=== PATIENT | male | born 1945 | race Caucasian/White ===

== ENCOUNTER 2018-01-12 12:06 | Outpatient (RCR) | payer OTHER ==
[~2018-01-12 12:06] MED LIST: LIDOCAINE VISC 2% SOLN 15 ML UDC ONE; MINERAL OIL/PETROLAT/GLYCERI 6OZ BTL ONE
[2018-01-12] MEDS ORDERED: LIDOCAINE VISC 2% SOLN 15 ML UDC ONE (12:54)
== END 2018-01-15 ==
LOC: WCC 12:06
PROVIDERS: ATTEND Family Medicine Adult Medicine
DX: S81.802A Unspecified open wound, left lower leg, initial encounter (principal); I87.2 Venous insufficiency (chronic) (peripheral); R60.9 Edema, unspecified; I10 Essential (primary) hypertension; W18.49XA Other slipping, tripping and stumbling without falling, initial encounter

== ENCOUNTER 2018-02-09 10:53 | Outpatient (RCR) | payer MEDICARE, OTHER ==
[~2018-02-09 10:53] MED LIST changes: +LIDOCAINE/PRILOCAINE 2.5-2.5% KIT ONE
[2018-02-09] MEDS ORDERED: LIDOCAINE/PRILOCAINE 2.5-2.5% KIT ONE (13:23)
== END 2018-02-15 ==
LOC: WCC 10:53
PROVIDERS: ATTEND Family Medicine Adult Medicine
DX: S81.802A Unspecified open wound, left lower leg, initial encounter (principal); I87.2 Venous insufficiency (chronic) (peripheral); R60.9 Edema, unspecified; I10 Essential (primary) hypertension; W18.49XA Other slipping, tripping and stumbling without falling, initial encounter

== ENCOUNTER → 2018-02-13 | Outpatient (CLI) | payer MEDICARE | LOC: WCC 13:45 | PROVIDERS: ATTEND Family Medicine Adult Medicine | DX: S81.802A Unspecified open wound, left lower leg, initial encounter (principal); I87.2 Venous insufficiency (chronic) (peripheral); R60.9 Edema, unspecified; W18.49XA Other slipping, tripping and stumbling without falling, initial encounter; I10 Essential (primary) hypertension ==

== ENCOUNTER 2018-02-16 12:01 | Outpatient (RCR) | payer MEDICARE | END 2018-03-17 | LOC: WCC 12:01 | PROVIDERS: ATTEND Family Medicine Adult Medicine | DX: S81.802A Unspecified open wound, left lower leg, initial encounter (principal); I87.2 Venous insufficiency (chronic) (peripheral); R60.9 Edema, unspecified; I10 Essential (primary) hypertension; W18.49XA Other slipping, tripping and stumbling without falling, initial encounter ==